=== PATIENT | male | born 1955 | race Caucasian/White ===

== ENCOUNTER → 2023-06-29 | Outpatient (CLI) | payer MEDICARE ==
--- NOTE | 2023-06-29 12:04 | XR ---
EXAMINATION TYPE: XR chest 2V DATE OF EXAM: 06/29/2023 COMPARISON: None HISTORY: 67-year-old male unspecified dyspnea, cough and congestion TECHNIQUE: Frontal and lateral views FINDINGS: The heart is upper limits of normal in size. Aorta and pulmonary vasculature are within normal limits . Mild hyperinflation mild interstitial prominence. No consolidation or pleural effusion. IMPRESSION: Borderline heart size. Correlate for possible underlying COPD. Otherwise, no acute process seen.
== END | disposition home or self-care (01) ==
LOC: RADXRMAIN 09:50
PROVIDERS: ATTEND Family Medicine
DX: R06.00 Dyspnea, unspecified (principal)
CPT/HCPCS: 71046

== ENCOUNTER 2023-07-04 07:56 | Day surgery (SDC) | payer MEDICARE ==
[2023-07-04 09:08] VITALS: TEMP 98.1
[2023-07-04 10:14] VITALS: BP 141/96; PULSE 90; RESP 16
--- NOTE | 2023-07-04 13:36 | US ---
EXAMINATION TYPE: US FNA thyroid first lesion DATE OF EXAM: 07/04/2023 9:39 AM CLINICAL INDICATION:Male, 67 years old with history of E04.9 NONTOXIC GOITER, UNSPECIFI; , thyroid no dule. COMPARISON: 06/03/2023. ATTENDING: Dr. Betito Abraham PROCEDURE: Informed consent was obtained. The risks and benefits of the procedure were discussed with the patien t. The site was marked. Timeout procedure was performed Ultrasound imaging of the thyroid demonstrates multinodular goiter on the right The patient was prepped, draped in the usual sterile fashion, and locally anesthetized with 1% lidoca ine. Five fine needle aspiration were then performed with a 25 gauge needle. Samples were sent to [facility] pathology department for further analysis. Patient tolerated the procedure without incident and wa s sent home in stable condition. IMPRESSION: Successful ultrasound guided fine needle aspiration of the large multinodular goiter..
== END 2023-07-04 09:52 | disposition home or self-care (01) ==
LOC: RADPROMAIN 07:56
PROVIDERS: ATTEND Family Medicine
DX: E04.2 Nontoxic multinodular goiter (principal)
CPT/HCPCS: 10005; 88173; 88305